=== PATIENT | female | born 1950 | race Caucasian/White ===

== ENCOUNTER 2022-07-31 21:13 | Observation (INO) | payer OTHER ==
[~2022-07-31] VITALS: Ht 170.2 cm; Wt 85.0 kg
[~2022-07-31 21:13] MED LIST: CHOLP; Lisinopril2.5 MG PO; POTA8 PO; VALA500 PO; [UNRECOGNIZED DRUG - OTHER]
[2022-07-31 21:47] LABS: BASOPHILS ABSOLUTE AUTO 0.08 K/mm3 (0.00-0.23); BASOPHILS PERCENT AUTO 1 % (0-2); EOSINOPHILS ABSOLUTE AUTO 0.12 K/mm3 (0.00-0.68); EOSINOPHILS PERCENT AUTO 1 % (0-6); Hematocrit 40.3 % (33.0-51.0); Hemoglobin 13.2 g/dL (11.5-16.0); IMMATURE GRAN ABSOLUTE AUTO 0.06 K/mm3 (0.00-0.10); IMMATURE GRAN PERCENT AUTO 1 % (0-1); LYMPHOCYTES ABSOLUTE AUTO 1.74 K/mm3 (0.84-5.20); LYMPHOCYTES PERCENT AUTO 17 % (21-46); MONOCYTES ABSOLUTE AUTO 0.63 K/mm3 (0.16-1.47); MONOCYTES PERCENT AUTO 6 % (4-13); Mean Corpuscular HGB 30.8 pg (26.0-34.0); Mean Corpuscular HGB Conc 32.8 g/dL (31.5-36.5); Mean Corpuscular Volume 94 fL (80-100); Mean Platelet Volume 9.3 fL (9.1-12.4); NEUTROPHILS ABSOLUTE AUTO 7.45 K/mm3 (1.96-9.15); NEUTROPHILS PERCENT AUTO 74 % (41-73); Platelet Count 199 K/mm3 (150-400); RDW Standard Deviation 44.3 fL (35.1-46.3); Red Blood Cell Count 4.29 M/mm3 (3.80-5.20); White Blood Cell Count 10.08 K/mm3 (4.00-11.30)
[2022-07-31] MEDS ORDERED: ASPI81CH PO (21:58)
[2022-07-31 22:01] LABS: Albumin, Blood 3.4 g/dL (3.4-5.0); Albumin/Globulin Ratio 0.9 (0.8-1.8); Bilirubin, Total 0.3 mg/dL (0.1-1.0); Bun/Creatinine Ratio 25.7 (12.0-20.0); Calcium, Blood 8.5 mg/dL (8.5-10.1); Creatinine, Blood 0.78 mg/dL (0.40-1.00); Globulin, Blood 3.6 g/dL (2.2-4.0); Potassium, Blood 3.7 mmol/L (3.5-5.5)
[2022-08-01 00:17] LABS: Source, Urine Clean Catch
[2022-08-01 00:20] LABS: Bilirubin, Urine Neg (Neg); Blood, Urine 2+ (Neg); Glucose Qualitative, Urine Neg (Neg); Ketones, Urine Neg (Neg); Leukocyte Esterase, Urine 3+ (Neg); Nitrite, Urine Neg (Neg); Protein, Urine 1+ (Neg); Urobilinogen, Urine NORM (Normal)
[2022-08-01 00:45] LABS: Appearance, Urine Hazy (Clear); Color, Urine Yellow (P-Yellow)
[2022-08-01 00:47] LABS: Amorphous Light (0-Heavy); Bacteria Mod /hpf; Red Blood Cells, Urine 0-2 /hpf (0-2); Squamous Epithelial Cells Few /hpf (Few)
[2022-08-01] MEDS ORDERED: IPRATROPIUM BRO15 ML (01:20)
[2022-08-01 06:08] LABS: BASOPHILS ABSOLUTE AUTO 0.05 K/mm3 (0.00-0.23); BASOPHILS PERCENT AUTO 1 % (0-2); EOSINOPHILS PERCENT AUTO 0 % (0-6); Hematocrit 39.8 % (33.0-51.0); Hemoglobin 13.1 g/dL (11.5-16.0); IMMATURE GRAN ABSOLUTE AUTO 0.03 K/mm3 (0.00-0.10); IMMATURE GRAN PERCENT AUTO 0 % (0-1); LYMPHOCYTES ABSOLUTE AUTO 1.17 K/mm3 (0.84-5.20); LYMPHOCYTES PERCENT AUTO 15 % (21-46); MONOCYTES ABSOLUTE AUTO 0.41 K/mm3 (0.16-1.47); MONOCYTES PERCENT AUTO 5 % (4-13); Mean Corpuscular HGB 30.5 pg (26.0-34.0); Mean Corpuscular HGB Conc 32.9 g/dL (31.5-36.5); Mean Corpuscular Volume 93 fL (80-100); Mean Platelet Volume 9.7 fL (9.1-12.4); NEUTROPHILS ABSOLUTE AUTO 6.18 K/mm3 (1.96-9.15); NEUTROPHILS PERCENT AUTO 79 % (41-73); Platelet Count 165 K/mm3 (150-400); RDW Coefficient Variation 12.8 % (11.7-14.2); RDW Standard Deviation 43.5 fL (35.1-46.3); White Blood Cell Count 7.84 K/mm3 (4.00-11.30)
[2022-08-01 06:32] LABS: Bun/Creatinine Ratio 28.3 (12.0-20.0); Calcium, Blood 8.3 mg/dL (8.5-10.1); Creatinine, Blood 0.67 mg/dL (0.40-1.00); Potassium, Blood 3.4 mmol/L (3.5-5.5)
--- NOTE | 2022-08-01 09:31 | NUR ---
nAUSEA pT HAS HAD SEVERAL EMESIS OF GREEN, CLEAR LIQUID. shE HAS CHRONIC DIARRHEA. tAKES A POWDER OF SOME SORT DAILY. sHE IS HAVING ABD CRAMPS, NAUSEA AND LIQUID BROWN STOOL. MEDICATED WITH REGLAN IV X1. rEGLAN IS A NEW MEDICATION. FAMILY REPORTS THAT ER TRIED ZOFRAN 8 MG LAST NIGHT WITH NO EFFECT. IVF INFUSING AT 125 ML/HR. HAVE HELD ORAL MEDICATIONS UNTIL SHE CAN KEEP SOMETHING DOWN. CONTINUE POC.
--- NOTE | 2022-08-01 11:12 | NUR ---
IV ACCESS LEFT AC IV SITE STARTED TO LEAK. REMOVED. PRESSURE DRESSING APPLIED. ASSESSED FOR NEW PERIPHERAL IV. PT RELATED THAT HER VEINS ROLL IF THEY CAN FIND ANYTHING. HAND VEINS SMALL AND SPIDERY. NO [place] FA VEINS NOTED. CALLED CHARGE NURSE FOR POWER GLIDE. CONTINUE POC.
--- NOTE | 2022-08-01 14:09 | NUR ---
MRI MRI CALLED TO CLARIFY STENT HISTORY. MRI OBTAINED RECORDS FROM [facility]. HAS CORONARY STENTS IN 2006. LANSING HAS NO RECORD ANYMORE. MRI DECLINED TO DO THE SCAN. CALLED DR DUBOIS TO RELAY INFORMATION. DR DUBOIS ORDERED A CTA HEAD AND NECK. CONTINUE POC.
--- NOTE | 2022-08-01 15:55 | NUR ---
CTA HEAD/NECK PT RETURNED FROM CTA HEAD/NECK. SHE TOLERATED WELL. DENIED NEED FOR REGLAN AT THIS TIME. SIPPING ON CLEAR LIQUIDS. IVF RESTARTED POST SCAN. CONTINUE POC.
--- NOTE | 2022-08-02 03:43 | NUR ---
SHIFT MOSTLY UNREMARKABLE. PT TOOK 2100 MEDICATIONS WITHOUT DIFFICULTY. HS CBG CHECK WAS 411 MG/DL. HOSPITALIST NOTIFIED. HOSPITALIST INCREASED 0900 INSULIN LANTUS FROM 15 UNITS TO COMBAT HYPERGLYCEMIA. 5 UNITS OF HUMALOG ADMINISTERED VIA HS SLIDING SCALE. SHIFT OTHERWISE UNREMARKABLE. PT AOX4, CALLS APPROPRIATELY, PLEASANT, AND COOPERATIVE WITH CARE. CALL LIGHT LEFT WITHIN REACH.
--- NOTE | 2022-08-02 03:58 | NUR ---
SHIFT MOSTLY UNREMARKABLE. PT HAS BEEN SLEEPING THROUGH MOST OF SHIFT AFTER ADMINISTERING PRN REGLAN AND MECLIZINE. ASSISTED TO BEDSIDE COMMODE ONE TIME EARLY THIS MORNING. PT WAS VERY WOBBLY ON FEET AND REQUIRED ASSISTANCE TO STAY UPRIGHT. DESPITE THIS, PT NOTES VERTIGO SEEMS TO BE IMPROVING FROM WHAT IT HAD BEEN YESTERDAY AT [facility]. PT IS AOX4, CALLS APPROPRIATELY, AND IS COOPERATIVE WITH CARE. CALL LIGHT LEFT WITHIN REACH.
[2022-08-02] MEDS ORDERED: ONDA4 PO (12:43)
[2022-08-02] MEDS ORDERED: MECL25 PO (12:43)
--- NOTE | 2022-08-02 14:43 | NUR ---
DISCHARGE HOME PT DISCHARGED HOME WITH FAMILY. PERSCRIPTIONS FAXED TO [facility] IN [place]. POWER GLIDE REMOVED WITH CANNULA INTACT. PRESSURE DRESSING APPLIED. CONTINUE POC.
== END 2022-08-02 14:42 | disposition home or self-care (01) ==
LOC: ER 21:13 → MEDS 21:14
PROVIDERS: Emergency Medicine; Family Medicine; ADMIT Internal Medicine
DX: H81.10 Benign paroxysmal vertigo, unspecified ear (principal); I25.10 Atherosclerotic heart disease of native coronary artery without angina pectoris; I10 Essential (primary) hypertension; Z95.5 Presence of coronary angioplasty implant and graft
CPT/HCPCS: 36415; 70450; 70496; 70498; 80048; 80053; 81001; 85025; 87086; 93005; 93010; 96372; 96374; 96375; 96376; 97112; 97116; 97162; 97530; 99285-25; A9270; G0378; J1650; J2405; J2765; J3360; J7030; P9612; Q9967

== ENCOUNTER 2022-11-16 09:00 | Day surgery (SDC) | payer OTHER ==
[~2022-11-16] VITALS: Ht 170.2 cm; Wt 79.5 kg
[~2022-11-16 09:00] MED LIST changes: +ASPI81CH PO; +IPRATROPIUM BRO15 ML; +MECL25 PO; +ONDA4 PO
[2022-11-16] MEDS ORDERED: CHOLESTYRAMI239.4 G1 PO (09:59)
[2022-11-16 12:29] VITALS: BP 123/52
== END 2022-11-16 12:00 | disposition home or self-care (01) ==
LOC: ORSCSDS 09:00
PROVIDERS: Internal Medicine Gastroenterology
PROC: 0DBL8ZX Excision of Transverse Colon, Via Natural or Artificial Opening Endoscopic, Diagnostic (ICD-10-PCS; principal; 2022-11-16 10:30)
PROC: 0DBM8ZX Excision of Descending Colon, Via Natural or Artificial Opening Endoscopic, Diagnostic (ICD-10-PCS; principal; 2022-11-16 10:30)
DX: Z86.010 Personal history of colon polyps (principal); Z80.0 Family history of malignant neoplasm of digestive organs; D12.4 Benign neoplasm of descending colon; D12.3 Benign neoplasm of transverse colon; I10 Essential (primary) hypertension; Z87.891 Personal history of nicotine dependence; Z79.899 Other long term (current) drug therapy
CPT/HCPCS: 88305; J2704; J7120